=== PATIENT | female | born 1960 | race Caucasian/White ===

== ENCOUNTER 2023-12-18 11:18 | Emergency (ER) | payer BC ==
[2023-12-18] MEDS: Sodium Chloride 0.9% 1,000 ML IV ONE (11:33)
[2023-12-18 11:43] LABS: BASOPHILS ABSOLUTE AUTO 0.02 10^3/uL (0.00-0.10); BASOPHILS PERCENT AUTO 0.1 % (0.0-1.0); EOSINOPHILS ABSOLUTE AUTO 0.01 10^3/uL (0.10-0.30); EOSINOPHILS PERCENT AUTO 0.1 % (1.0-3.0); HEMATOCRIT 44.3 % (37.0-47.0); HEMOGLOBIN 14.8 g/dL (12.0-16.0); IMMATURE GRAN ABSOLUTE AUTO 0.02 10^3/uL (0.00-0.50); IMMATURE GRAN PERCENT AUTO 0.1 % (0.0-5.0); LYMPHOCYTES ABSOLUTE AUTO 1.99 10^3/uL (1.00-4.00); LYMPHOCYTES PERCENT AUTO 12.5 % (20.0-40.0); MEAN CORPUSCULAR HEMOGLOBIN 30.5 pg (27.0-31.0); MEAN CORPUSCULAR HGB CONC 33.4 g/dL (32.0-36.0); MEAN CORPUSCULAR VOLUME 91.3 fL (82.0-92.0); MEAN PLATELET VOLUME 10.5 fL (7.4-10.4); MONOCYTES ABSOLUTE AUTO 1.53 10^3/uL (0.10-0.80); MONOCYTES PERCENT AUTO 9.6 % (2.0-8.0); NEUTROPHILS ABSOLUTE AUTO 12.34 10^3/uL (2.50-7.00); NEUTROPHILS PERCENT AUTO 77.6 % (50.0-70.0); PLATELET COUNT,PLT 327 10^3/uL (150-400); RED BLOOD CELL COUNT 4.85 10^6/uL (3.80-5.50); RED CELL DISTRIBUTION WIDTH 12.6 % (11.5-14.5); WHITE BLOOD CELL COUNT,WBC 15.91 10^3/uL (5.00-10.00)
[2023-12-18] MEDS: Sodium Chloride 0.9% 1,000 ML ONE (11:46)
[2023-12-18 12:02] LABS: ALBUMIN 3.33 g/dL (3.40-5.00); ANION GAP 10.4 mmol/L (5-15); BILIRUBIN TOTAL 0.4 mg/dL (0.2-1.0); CALCIUM 9.5 mg/dL (8.7-10.3); CARBON DIOXIDE,CO2 29.6 mmol/L (21.0-32.0); CREATININE 0.62 mg/dL (0.51-1.17); EST CRCL DRUG DOSING (CG) 82.49 mL/min; PROTEIN TOTAL,TP 7.3 g/dL (6.4-8.2)
[2023-12-18] MEDS: Ondansetron 4 MG/2 ML SDV IVPUSH ONE (12:03)
[2023-12-18] MEDS: Ketorolac 30 MG/ML SDV IVPUSH ONE (12:04)
[2023-12-18] MEDS: HYDROmorphone 1 MG/ML Syringe IVPUSH ONE ×2 (12:06→14:57)
[2023-12-18] MEDS: Iopamidol 755 Mg/ML 100 ML Bottle IV ONE (12:31)
[2023-12-18] MEDS: Sodium Chloride 0.9% 50 ML IV SCH (12:31)
[2023-12-18 13:19] LABS: C-REACTIVE PROTEIN 0.84 mg/dL (0.00-0.50)
[2023-12-18] MEDS: cefTRIAXone 2 GM Vial IVPUSH ONE (14:46)
[2023-12-18] MEDS: metroNIDAZOLE/Normal Saline 500 MG in Premix Bag 1 BAG IV ONE (15:01)
[2023-12-18 15:39] VITALS: BP 100/66; PULSE 71
== END 2023-12-18 15:14 ==
LOC: KA.ED 11:18
DX: K81.0 Acute cholecystitis (principal); I10 Essential (primary) hypertension; E66.9 Obesity, unspecified; Z87.891 Personal history of nicotine dependence; Z86.73 Personal history of transient ischemic attack (TIA), and cerebral infarction without residual deficits; Z79.899 Other long term (current) drug therapy; Z68.21 Body mass index [BMI] 21.0-21.9, adult
CPT/HCPCS: 36415; 74177; 80053; 82150; 83605; 83690; 85025; 86140; 96361; 96374; 96375; 96376; 99284; 99285-25; J0696; J1170; J1885; J2405; J3490; J7030; Q9967